=== PATIENT | female | born 1975 | race Asian ===

== ENCOUNTER 2016-11-21 01:25 | Inpatient (IN) | payer SELFPAY ==
[~2016-11-21] VITALS: Ht 164 cm; Wt 56.7 kg
[2016-11-21] MEDS ORDERED: LACTATED RINGERS 1,000 ML IV SCH (02:57)
[2016-11-21] MEDS ORDERED: NALBUPHINE HYDROCHLORIDE 10 MG/ML VIAL IVP SCH (03:00)
[2016-11-21] MEDS ORDERED: CITRIC ACID/SODIUM CITRATE 30 ML UDC PO SCH (03:00)
[2016-11-21 03:30] LABS: APPEARANCE,URINE CLEAR (CLEAR); BILIRUBIN,URINE NEGATIVE (NEGATIVE); BLOOD, URINE 3+ (NEGATIVE); COLOR,URINE YELLOW (YELLOW); LEUKOCYTE ESTERASE ,URINE NEGATIVE (NEGATIVE); NITRITE, URINE NEGATIVE (NEGATIVE); UGLUCOSE NEGATIVE (NEGATIVE)
[2016-11-21 03:30] LABS: BASOPHILS # (AUTO) 0.1 K/uL (0.00-0.22); EOSINOPHILS # (AUTO) 0.1 K/uL (0-0.4); HEMOGLOBIN 11.8 g/dL (12.0-16.0); RED CELL DISTRIBUTION WIDTH 14.1 % (11.6-13.7); WHITE BLOOD COUNT (AUTO) 9.2 K/uL (4.8-10.8)
[2016-11-21 03:35] LABS: BASOPHILS % (AUTO) 0.9 % (0.0-2.0); EOSINOPHILS % (AUTO) 0.9 % (0.0-4.0); HEMATOCRIT 37.6 % (36-48); LYMPHOCYTES # (AUTO) 1.1 K/uL (2.5-16.5); LYMPHOCYTES % (AUTO) 11.6 % (20.5-51.1); MEAN CORPUSCULAR HEMOGLOBIN 23 pg (27-31); MEAN CORPUSCULAR HGB CONC 31 g/dL (33-37); MEAN CORPUSCULAR VOLUME 73 fL (80-94); MONOCYTES # (AUTO) 0.6 K/uL (0.8-1.0); MONOCYTES % (AUTO) 6.3 % (1.7-9.3); NEUTROPHILS # (AUTO) 7.3 K/uL (1.8-7.7); NEUTROPHILS % (AUTO) 80.3 % (42.2-75.2); PLATELET COUNT (AUTO) 193 K/uL (140-450); RED BLOOD CELL COUNT(AUTO) 5.16 MIL/uL (4.20-5.40)
[2016-11-21 03:38] VITALS: BP 132/83
[2016-11-21 03:46] LABS: RBC,URINE 0-5 (RARE) /HPF (0-5); WBC,URINE 0-5 (RARE) /HPF (0-5)
[2016-11-21] MEDS ORDERED: ePHEDrine 50 MG/ML VIAL IV ONE (06:20)
[2016-11-21] MEDS ORDERED: fentaNYL 0.05 MG/ML VIAL ONE (06:35)
[2016-11-21] MEDS ORDERED: KETAMINE 500 MG/5 ML VIAL ONE (06:35)
[2016-11-21] MEDS ORDERED: MIDAZOLAM 2 MG/2 ML VIAL ONE (06:35)
[2016-11-21] MEDS ORDERED: MORPHINE PRES FREE 10 MG/10 ML AMP IV ONE (06:35)
[2016-11-21] MEDS ORDERED: TRIAMCINOLONE 40 MG/ML 5ML VIAL ONE (06:36)
[2016-11-21] MEDS ORDERED: OXYTOCIN 10 UNITS/ML VIAL ONE (06:37)
[2016-11-21] MEDS ORDERED: METHYLERGONOVINE 0.2 MG/ML AMP ONE (06:37)
[2016-11-21] MEDS ORDERED: ceFAZolin 1,000 MG VIAL ONE (06:38)
[2016-11-21] MEDS ORDERED: diphenhydrAMINE 50 MG/ML VIAL IVP PRN (07:15)
[2016-11-21] MEDS ORDERED: ONDANSETRON 4 MG/2 ML VIAL IVP PRN (07:15)
[2016-11-21] MEDS ORDERED: KETOROLAC 30 MG/ML VIAL IVP PRN (07:15)
[2016-11-21] MEDS ORDERED: OXYTOCIN 20 UNITS in LACTATED RINGERS 1,000 ML IV SCH ×2 (07:29→12:25)
[2016-11-21] MEDS ORDERED: oxyCODONE/APAP 5/325 MG 1 TAB TAB PO PRN (07:30)
[2016-11-21] MEDS ORDERED: METHYLERGONOVINE 0.2 MG/ML AMP IM PRN (07:30)
[2016-11-21] MEDS ORDERED: HYDROcodone/APAP 5/325 MG 1 TAB TAB PO PRN (07:30)
[2016-11-21] MEDS ORDERED: SIMETHICONE 80 MG TAB.CHEW PO PRN (07:30)
[2016-11-21] MEDS ORDERED: TRIMETHOBENZAMIDE 200 MG/2 ML SYR IM PRN (07:30)
[2016-11-21] MEDS ORDERED: TEMAZEPAM 15 MG CAP PO PRN (07:30)
[2016-11-21] MEDS ORDERED: MEASLES, MUMPS, AND RUBELLA 1 VIAL SQVAC PRN (07:30)
--- NOTE | 2016-11-21 08:32 | NUR ---
PATIENT HAS BEEN SCREENED AND CATEGORIZED LOW RISK. PATIENT WILL BE SEEN WITHIN 7 DAYS OF ADMISSION. 11/28/[address]
[2016-11-21] MEDS ORDERED: OXYTOCIN 20 UNITS in LACTATED RINGERS 1,000 ML IM SCH (12:10)
[2016-11-21] MEDS: OXYTOCIN 20 UNITS/LR PREMIX 1,000 ML IV SCH ×3 (12:42→22:21)
[2016-11-21 13:04] LABS: RAPID PLASMA REAGIN NON-REACTIVE (Non Reactiv)
[2016-11-21] MEDS: DOCUSATE SOD/SENNA 50/8.6 MG 1 TAB PO SCH (21:00)
[2016-11-22 06:43] LABS: BASOPHILS % (AUTO) 0.1 % (0.0-2.0); EOSINOPHILS # (AUTO) 0.1 K/uL (0-0.4); EOSINOPHILS % (AUTO) 0.7 % (0.0-4.0); HEMOGLOBIN 9.9 g/dL (12.0-16.0); LYMPHOCYTES # (AUTO) 0.6 K/uL (2.5-16.5); MEAN CORPUSCULAR HEMOGLOBIN 23 pg (27-31); MEAN CORPUSCULAR HGB CONC 32 g/dL (33-37); MEAN CORPUSCULAR VOLUME 72 fL (80-94); MONOCYTES # (AUTO) 0.7 K/uL (0.8-1.0); MONOCYTES % (AUTO) 4.7 % (1.7-9.3); NEUTROPHILS # (AUTO) 14.3 K/uL (1.8-7.7); NEUTROPHILS % (AUTO) 90.5 % (42.2-75.2); PLATELET COUNT (AUTO) 222 K/uL (140-450); RED CELL DISTRIBUTION WIDTH 14.2 % (11.6-13.7)
[2016-11-22 07:07] LABS: WHITE BLOOD COUNT (AUTO) 15.7 K/uL (4.8-10.8)
[2016-11-22] MEDS: IBUPROFEN 800 MG TAB PO PRN ×2 (08:47→23:55)
[2016-11-22] MEDS: DOCUSATE SOD/SENNA 50/8.6 MG 1 TAB PO SCH (21:09)
[2016-11-23] MEDS: IBUPROFEN 800 MG TAB PO PRN ×2 (08:49→20:08)
[2016-11-23] MEDS: DOCUSATE SOD/SENNA 50/8.6 MG 1 TAB PO SCH (20:40)
[2016-11-24] MEDS ORDERED: DOCUSATE SODIUM 100 MG GELCAP PO SCH (01:30)
== END 2016-11-24 18:10 | disposition home or self-care (01) | DRG 766 ==
LOC: MFCC 01:25
PROVIDERS: ADMIT Obstetrics & Gynecology; ATTEND Obstetrics & Gynecology
PROC: 10D00Z1 Extraction of Products of Conception, Low, Open Approach (ICD-10-PCS; principal; 2016-11-21 06:30)
PROC: 3E0134Z Introduction of Serum, Toxoid and Vaccine into Subcutaneous Tissue, Percutaneous Approach (ICD-10-PCS; 2016-11-22)
DX: O69.81X0 Labor and delivery complicated by cord around neck, without compression, not applicable or unspecified (principal); Z23 Encounter for immunization; Z37.0 Single live birth; Z3A.39 39 weeks gestation of pregnancy
CPT/HCPCS: 36415; 81001; 85025; 86592; 86886; 86900; 86901; 90707; J0690; J2210; J2250; J2270; J2405; J2590; J3010; J3301; J7060; J7120